=== PATIENT | male | born 1980 | race Caucasian/White ===

== ENCOUNTER 2018-05-06 08:15 | Day surgery (SDC) | payer BC ==
--- OUTSIDE RECORDS SUMMARY | 2018-05-06 08:19 | XMS REPORT ---
:1980 Author Organization eClinicalWorks Care Team Providers Name Role Phone Bouchra Forde Provider Role Unavailable Allergies No Known Allergies Problems No Known Problems Medications No Known Medications Results No Known Results Summary Purpose eClinicalWorks Submission
--- OUTSIDE RECORDS SUMMARY | 2018-05-06 08:19 | XMS REPORT ---
:1980 Author Organization eClinicalWorks Care Team Providers Name Role Phone Bouchra Forde Provider Role Unavailable Allergies, Adverse Reactions, Alerts Substance Reaction Event Type N.K.D.A. Info Not Available Non Drug Allergy Problems Problem Type Condition Code Onset Dates Condition Status Assessment Microhematuria R31.29 Active Medications Medication Code Code Instructions Start End Date Status Dosage System Date Multi Vitamin [facility] 52024683409 - Orally Once a Active 1 tablet day Results Name Result Date Reference Range Unit Abnormality Flag URINALYSIS AUTO W/O SCOPE (89920) ----OTTONIEL neg [id number] ----NIT neg [id number] ----PROTEIN neg [id number] ----pH 7.0 [id number] ----BLO 1+ [id number] ----GLUCOSE neg [id number] ----BILIRUBIN neg [id number] ----KETONES neg [id number] ----SPECIFIC GRAVITY 1.020 [id number] PVR ----PVR 0 [id number] Summary Purpose eClinicalWorks Submission
--- OUTSIDE RECORDS SUMMARY | 2018-05-06 08:19 | XMS REPORT ---
:1980 Author Organization eClinicalWorks Care Team Providers Name Role Phone Bouchra Forde Provider Role Unavailable Allergies No Known Allergies Problems No Known Problems Medications Medication Code System Code Instructions Start Date End Date Status Dosage Cipro [facility] [id number] 500 MG Orally Jan 22, Jan 23, Active 1 tablet once a day 2017 2017 Results No Known Results Summary Purpose eClinicalWorks Submission
--- OUTSIDE RECORDS SUMMARY | 2018-05-06 08:20 | XMS REPORT ---
:1980 Author Organization eClinicalWorks Care Team Providers Name Role Phone Ryder Silver Provider Role Unavailable Allergies, Adverse Reactions, Alerts Substance Reaction Event Type N.K.D.A. Info Not Available Non Drug Allergy Problems Problem Type Condition Code Onset Dates Condition Status Assessment Microhematuria R31.29 Active Medications Medication Code Code Instructions Start End Date Status Dosage System Date Multi Vitamin [facility] [id number] - Orally Once a Active 1 tablet day Results Name Result Date Reference Range Unit Abnormality Flag URINALYSIS AUTO W/O SCOPE (75228) ----NIT neg [id number] ----URO 0.2 20180126 ----PROTEIN neg 20180126 ----pH 8.0 20180126 ----BLO tr 20180126 ----GLUCOSE neg 20180126 ----OTTONIEL neg 20180126 ----BILIRUBIN neg 20180126 ----KETONES neg 20180126 ----SPECIFIC GRAVITY 1.010 20180126 Summary Purpose eClinicalWorks Submission
[2018-05-06] MEDS ORDERED: Ringers Lactate 1,000 ML IV ONE (09:17)
[2018-05-06] MEDS ORDERED: CEFAZOLIN 2GM (PREMIX IV) 2 GM/50 ML BAG ONE (09:18)
[2018-05-06] MEDS ORDERED: FENTANYL CITR 100 MCG/2 ML ONE (09:41)
[2018-05-06] MEDS ORDERED: PROPOFOL 200 MG/20 ML VIAL IV ONE (09:42)
[2018-05-06] MEDS ORDERED: LIDOCAINE 2% MPF 5 ML VIAL ONE (09:42)
[2018-05-06] MEDS ORDERED: MIDAZOLAM HCL 2 MG/2 ML INJ ONE (09:42)
[2018-05-06] MEDS ORDERED: ONDANSETRON 4 MG/2 ML VIAL ONE (09:42)
[2018-05-06] MEDS ORDERED: ROCURONIUM 50 MG/5 ML VIAL IV ONE (09:43)
[2018-05-06] MEDS ORDERED: BUPIVACA 0.25%/EPI 0.0005% MDV 50 ML VIAL ONE (09:59)
--- NOTE | 2018-05-06 11:03 | P.OP ---
Hall Coordinator: Fadi Luz Preoperative diagnosis: Umbilical Hernia Postoperative diagnosis: Umbilical Hernia Primary procedure: Open Repair of Umbilical Hernia with Mesh Anesthesia: GETA + Local Estimated blood loss: <5cc Specimen: None Findings: ~1.5cm umbilical hernia Complications: None Drain(s): Other Implants: 4.3 cm round Bard Ventralex Mesh Transferred to: Recovery Room Condition: Good
[2018-05-06] MEDS ORDERED: GLYCOPYRROLATE 0.2 MG/ML SYR ONE ×2 (11:13)
[2018-05-06] MEDS ORDERED: NEOSTIGMINE 1 MG/ML -5 ML SYRINGE ONE (11:13)
[2018-05-06] MEDS ORDERED: HYDROCODONE/APAP 5/325 MG TAB ONE (11:59)
--- NOTE | 2018-05-06 21:58 | OP ---
Date of Procedure: 05/06/2018 Surgeon: Isaac Luong MD, Supervisor Production Department: Ellis Macias. Preoperative Diagnosis: Umbilical hernia. Postoperative Diagnosis: Umbilical hernia. Procedure Performed: An open repair of umbilical hernia with mesh. Anesthesia: General endotracheal plus local. Estimated Blood Loss: Less than 5 cc. Specimen: None. Findings: A 1.5 cm umbilical hernia defect. Complication: None. Drains: None. Implants: A 4.3 cm Bard Ventralex mesh. Disposition: Transferred to recovery room in good condition. Procedure In Detail: After informed consent was obtained, the patient was brought to the operating r oom, prepped and draped in the usual sterile fashion. After adequate anesthesia was achieved, an inf raumbilical area was anesthetized was anesthetized appropriately and a curvilinear incision was made in the infraumbilical position for approximately 3.5-4 cm. I dissected down to expose the hernia sac , which was in the umbilical position. I opened the hernia sac and the preperitoneal fat was returne d to the normal abdominal space. I placed a finger and swept any preperitoneal fat out of the way an d inspected the area with no additional hemostatic maneuvers required. At this time, I brought the 4 .3 cm Bard Ventralex mesh. It was round and secured it in a parachute manner with an 0 PDS in a circ umferential manner on 4 points circumferentially around. I introduced the mesh in the preperitoneal space, pulled it up, and did a finger sweep once again to ensure that no enteric contents or peritone al fat were preventing complete apposition of the mesh to the anterior abdominal wall. While holding the fascial planes up and elevated, the mesh was secured to the anterior abdominal wall using the 4 interrupted 0 PDS sutures with good approximation of the mesh. After this was performed, the fascia over the top was closed in an A-jbtzal-yuof fashion with an additional 0 PDS suture with good approxi mation of tissues. The area was copiously irrigated multiple times and completely clear. No additio nal hemostatic maneuvers were required. The skin was then closed with a 4-0 Monocryl in a running fa shion. Dermabond was placed over the top. The patient tolerated the procedure well without evidence of complication and transferred to the PACU in good condition. All counts were correct at the end o f the case. TK/MODL Voice ID: [id number] Report ID: [id number]
== END 2018-05-06 12:27 | disposition home or self-care (01) ==
LOC: OR 08:15
PROVIDERS: ATTEND Surgery
PROC: 0WUF0JZ Supplement Abdominal Wall with Synthetic Substitute, Open Approach (ICD-10-PCS; principal; 2018-05-06 10:15)
DX: K42.9 Umbilical hernia without obstruction or gangrene (principal); Z87.891 Personal history of nicotine dependence
CPT/HCPCS: J0690; J2250; J2405; J2704; J2710; J3010

== ENCOUNTER 2022-01-02 14:19 | Emergency (ER) | payer BC ==
[2022-01-02 15:44] LABS: Absolute Lymphocytes (CBC) 1.7 K/uL (0.7-4.9); Hematocrit 40.2 % (39.6-49.0); Lymphocytes % 22.6 % (15.3-44.8); MCV 90.1 fL (80-100); MPV 7.9 fL (7.6-11.3); RBC Red Blood Cell Count 4.47 M/uL (4.33-5.43)
[2022-01-02 15:58] LABS: Albumin 3.6 g/dL (3.4-5.0); Bilirubin Total 0.2 mg/dL (0.2-1.0); Potassium 3.9 mmol/L (3.5-5.1); Protein, Total 6.8 g/dL (6.4-8.2)
[2022-01-02] MEDS ORDERED: NA CHLORIDE 0.9% 1,000 ML ONE (17:16)
[2022-01-02] MEDS ORDERED: PANTOPRAZOLE 40 MG INJ ONE (17:16)
--- NOTE | 2022-01-02 18:25 | RAD REPORT ---
EXAM DESCRIPTION: CTAbdomen Pelvis W Contrast - 01/02/2022 5:32 pm CLINICAL HISTORY: Abdominal pain. GI bleed COMPARISON: No comparisons TECHNIQUE: Biphasic CT imaging of the abdomen and pelvis was performed with 100 ml non-ionic IV cont rast. All CT scans are performed using dose optimization technique as appropriate and may include automated exposure control or mA/KV adjustment according to patient size. FINDINGS: The lung bases are clear. The liver, spleen, pancreas, adrenal glands and kidneys are within normal limits. Small benign cyst r ight kidney. No bowel obstruction, free air, free fluid or abscess. Small fat containing umbilical hernia. The saulo endix is normal. No evidence of significant lymphadenopathy. No suspicious bony findings. IMPRESSION: No acute intra-abdominal or pelvic finding.
--- NOTE | 2022-01-02 18:51 | EDPHYS ---
Physician Documentation [facility] Name: Sterling Rivers Age: 41 yrs Sex: Male : 1980 Arrival Date: 01/02/2022 Time: 14:27 Bed 9 Private MD: [facility] ED Physician Fantasma Trinidad HPI: 01/02 15:29 This 41 yrs old Male presents to ER via Ambulatory with complaints of Bloody Stools. pm1 15:29 The patient presents to the emergency department with rectal bleeding, dark red blood pm1 with bowel movement. Onset: The symptoms/episode began/occurred 1 week(s) ago. Abdominal pain: none is appreciated. Modifying factors: The symptoms are alleviated by nothing, the symptoms are aggravated by nothing. Associated signs and symptoms: Pertinent negatives: chest pain, constipation, diarrhea, syncope, vomiting. Severity of symptoms: in the emergency department the symptoms are worse Pain is currently a 0 / 10. The patient has not experienced similar symptoms in the past. The patient has not recently seen a physician. Historical: - Allergies: 15:00 No Known Allergies; bm7 - Home Meds: 15:00 None [Active]; bm7 - PMHx: 15:00 Anxiety; bm7 - PSHx: 15:00 umbilical hernia; bm7 - Immunization history:: Adult Immunizations up to date. - Social history:: Smoking status: Reported history of juuling and/or vaping. ROS: 15:29 Constitutional: Negative for fever, chills, and weight loss, Cardiovascular: Negative pm1 for chest pain, palpitations, and edema, Respiratory: Negative for shortness of breath, cough, wheezing, and pleuritic chest pain. 15:29 Back: Negative for injury and pain, MS/Extremity: Negative for injury and deformity, Skin: Negative for injury, rash, and discoloration, Neuro: Negative for headache, weakness, numbness, tingling, and seizure. 15:29 Abdomen/GI: Positive for black/tarry stool, Negative for abdominal pain, nausea, vomiting, and diarrhea. 15:29 All other systems are negative. Exam: 15:29 Constitutional: This is a well developed, well nourished patient who is awake, alert, pm1 and in no acute distress. Head/Face: Normocephalic, atraumatic. 15:29 Back: No spinal tenderness. No costovertebral tenderness. Full range of motion. Skin: Warm, dry with normal turgor. Normal color with no rashes, no lesions, and no evidence of cellulitis. MS/ Extremity: Pulses equal, no cyanosis. Neurovascular intact. Full, normal range of motion. 15:29 Cardiovascular: Exam negative for acute changes, Rate: normal, Rhythm: regular, Pulses: no pulse deficits are appreciated, Heart sounds: normal, normal S1and S2. 15:29 Respiratory: Exam negative for acute changes, respiratory distress, shortness of breath, Breath sounds: are clear throughout. 15:29 Abdomen/GI: Inspection: abdomen appears normal, Palpation: abdomen is soft and non-tender, in all quadrants. 15:29 Neuro: Exam negative for acute changes, Orientation: is normal, Mentation: is normal, Motor: is normal, moves all fours. 16:49 Abdomen/GI: Rectal exam: Stool: guaiac positive, Dark brown, Yanni aircraft engine technician. pm1 Vital Signs: 14:57 BP 146 / 92; Pulse 86; Resp 16; Temp 98.2(TE); Pulse Ox 99% on R/A; Weight 74.84 kg bm7 (R); Height 5 ft. 8 in. (172.72 cm); Pain 0/10; 15:21 Pulse 84; Resp 16; Temp 98.4; Pulse Ox 100% on R/A; Weight 82.55 kg; Height 5 ft. 5 in. bm7 (165.10 cm); 15:21 Body Mass Index 30.29 (82.55 kg, 165.10 cm) bm7 MDM: 15:07 Patient medically screened. pm1 16:49 Refusal of service: The patient/guardian displays adequate decision making capability pm1 and despite a detailed discussion of alternatives, benefits, risks, and consequences refuses: Admission to the hospital for further work-up and treatment, Patient's history is concerning for possible upper GI bleed. Patient's stool guaiac positive for blood. Recommended admission but the patient does not want to be admitted despite the risks explained. Therefore will treat the patient with Protonix IV and get CT scan for further evaluation. Patient is agreeable to CT scan. Will discuss admission with patient again after CT results obtained. 18:48 Data reviewed: vital signs. Data interpreted: Pulse oximetry: on room air is 100 %. pm1 Interpretation: normal. 18:48 Refusal of service: The patient/guardian displays adequate decision making capability pm1 and despite a detailed discussion of alternatives, benefits, risks, and consequences refuses: Admission to the hospital for further work-up and treatment, Patient's at bedside for patient's refusal. Explained to the patient that he can return at any time for admission and explained my concern for risk that he can bleed out with a GI bleed. Patient's game plan is to follow up with Dr. Wright on an outpatient basis for treatment and evaluation. 01/02 15:04 Order name: Lipase; Complete Time: 16:00 bm7 01/02 15:13 Order name: CBC with Diff; Complete Time: 16:15 bm7 01/02 15:13 Order name: CMP; Complete Time: 16:00 bm7 01/02 16:50 Order name: CT Abd/Pelvis - IV Contrast Only; Complete Time: 18:31 pm1 01/02 15:13 Order name: IV Saline Lock; Complete Time: 15:15 bm7 01/02 15:13 Order name: Labs collected and sent; Complete Time: 16:16 bm7 Administered Medications: 17:21 Drug: NS 0.9% 1000 ml Route: IV; Rate: 1000 ml; Site: right antecubital; iw 17:21 Drug: ProTONIX (pantoprazole) 40 mg Route: IVP; Site: right antecubital; iw Disposition: 21:16 Co-signature as Attending Physician, Fantasma CULLEN was immediately available on-site ms3 in the Emergency Department for consultation in the care of the patient. . Disposition Summary: 01/02/22 18:50 Discharge Ordered Location: Home pm1 Problem: new pm1 Symptoms: are unchanged pm1 Condition: Undetermined pm1 Diagnosis - GI Bleed/ Gastrointestinal hemorrhage, unspecified pm1 Followup: pm1 - With: Emergency Department - When: As needed - Reason: Worsening of condition Followup: pm1 - With: Quincy Harmon MD - When: Upon discharge from the Emergency Department - Reason: Recheck today's complaints, Continuance of care, Re-evaluation by your physician Discharge Instructions: - Discharge Summary Sheet pm1 - Gastrointestinal Bleeding pm1 Forms: - Medication Reconciliation Form pm1 - Thank You Letter pm1 - Antibiotic Education pm1 - Prescription Opioid Use pm1 Prescriptions: - Protonix 40 mg Oral tablet,delayed release (DR/EC) - take 1 tablet by ORAL route every 12 hours; 30 tablet; Refills: 0, Product pm1 Selection Permitted Signatures: Dispatcher [employer] EDMS Stephenie Enciso, RN RN iw Nhan Fuentes, APPLICATION SYSTEMS ARCHITECT APPLICATION SYSTEMS ARCHITECT pm1 Fantasma Trinidad DO DO ms3 Ami Broderick RN RN bm7 Corrections: (The following items were deleted from the chart) 15: 15:07 AMYLASE, SERUM+C.LAB.BRZ ordered. EDMS EDMS 15:44 15:07 HEPATIC FUNCTION+C.LAB.BRZ ordered. EDMS EDMS 15:44 15:14 AMYLASE, SERUM+C.LAB.BRZ reviewed. pm1 EDMS
--- NOTE | 2022-01-02 18:51 | ER ---
Nurse's Notes [facility] Name: Sterling Rivers Age: 41 yrs Sex: Male : 1980 Arrival Date: 01/02/2022 Time: 14:27 Bed 9 Private MD: Tyler Elena Diagnosis: GI Bleed/ Gastrointestinal hemorrhage, unspecified Presentation: 01/02 14:58 Chief complaint: Patient states: I have been having dark blood in my stool for the past bm7 week and my PCP told me to come to the ER. I have a history of hemorrhoids but im not sure if that's it. Coronavirus screen: At this time, the client does not indicate any symptoms associated with coronavirus-19. Ebola Screen: No symptoms or risks identified at this time. Initial Sepsis Screen: Does the patient meet any 2 criteria? No. Patient's initial sepsis screen is negative. Does the patient have a suspected source of infection? No. Patient's initial sepsis screen is negative. Risk Assessment: Do you want to hurt yourself or someone else? Patient reports no desire to harm self or others. Onset of symptoms was December 25, 2021. 14:58 Method Of Arrival: Ambulatory bm7 14:58 Acuity: MICHELET 3 bm7 Triage Assessment: 15:00 General: Appears in no apparent distress. comfortable, well groomed, well developed, bm7 Behavior is calm, cooperative, appropriate for age. Pain: Denies pain. EENT: No deficits noted. No signs and/or symptoms were reported regarding the EENT system. Neuro: No deficits noted. Cardiovascular: No deficits noted. Respiratory: No deficits noted. GI: Abdomen is round non-distended, Bowel sounds present X 4 quads. Reports rectal bleeding, bloody stool, Patient currently denies nausea, vomiting. : No deficits noted. No signs and/or symptoms were reported regarding the genitourinary system. Derm: No deficits noted. No signs and/or symptoms reported regarding the dermatologic system. Musculoskeletal: No deficits noted. No signs and/or symptoms reported regarding the musculoskeletal system. Historical: - Allergies: 15:00 No Known Allergies; bm7 - Home Meds: 15:00 None [Active]; bm7 - PMHx: 15:00 Anxiety; bm7 - PSHx: 15:00 umbilical hernia; bm7 - Immunization history:: Adult Immunizations up to date. - Social history:: Smoking status: Reported history of juuling and/or vaping. Vital Signs: 14:57 BP 146 / 92; Pulse 86; Resp 16; Temp 98.2(TE); Pulse Ox 99% on R/A; Weight 74.84 kg bm7 (R); Height 5 ft. 8 in. (172.72 cm); Pain 0/10; 15:21 Pulse 84; Resp 16; Temp 98.4; Pulse Ox 100% on R/A; Weight 82.55 kg; Height 5 ft. 5 in. bm7 (165.10 cm); 15:21 Body Mass Index 30.29 (82.55 kg, 165.10 cm) bm7 ED Course: 14:27 Patient arrived in ED. mr 14:27 Tyler Elena DO is Private Physician. mr 14:41 Nhan Fuentes [facility]. pm1 14:41 Fantasma Trinidad DO is Attending Physician. pm1 14:57 Arm band placed on right wrist. bm7 15:00 Triage completed. bm7 15:20 Initial lab(s) drawn, by nd, sent to lab. Inserted saline lock: 20 gauge in right bm7 antecubital area, using aseptic technique. Blood collected. 17:03 Stephenie Enciso, IVY is Primary Nurse. iw 17:34 CT Abd/Pelvis - IV Contrast Only In Process Unspecified. EDMS 18:50 Quincy Harmon MD is Referral Physician. pm1 Administered Medications: 17:21 Drug: NS 0.9% 1000 ml Route: IV; Rate: 1000 ml; Site: right antecubital; iw 17:21 Drug: ProTONIX (pantoprazole) 40 mg Route: IVP; Site: right antecubital; iw Outcome: 18:50 Discharge ordered by . pm1 19:05 Patient left the ED. iw Signatures: Dispatcher [employer] EDWV Mariann Law mr Stephenie Enciso, IVY RN iw Nhan Fuentes, [employer] pm1 Ami Broderick RN RN 7
[2022-01-02 20:44] VITALS: BP 146/92
[2022-01-02 20:56] VITALS: TEMP 98.4; O2SAT 100
== END 2022-01-02 19:05 | disposition home or self-care (01) ==
LOC: ER 14:19
DX: K92.2 Gastrointestinal hemorrhage, unspecified (principal)
CPT/HCPCS: 85025; 36415; 83690; 80053; 74177; 96374; 99284; Q9967; C9113; J7030

== ENCOUNTER 2022-04-09 06:55 | Day surgery (SDC) | payer BC ==
[2022-04-07 16:02] LABS: Absolute Lymphocytes (CBC) 2.1 K/uL (0.7-4.9); Hematocrit 43.4 % (39.6-49.0); Lymphocytes % 22.2 % (15.3-44.8); MCV 92.7 fL (80-100); MPV 7.6 fL (7.6-11.3); RBC Red Blood Cell Count 4.68 M/uL (4.33-5.43)
--- NOTE | 2022-04-07 16:58 | RAD REPORT ---
EXAM DESCRIPTION: RAD - Chest Pa And Lat (2 Views) - 04/07/2022 4:06 pm CLINICAL HISTORY: Pre op pending hernia repair Chest pain. COMPARISON: No comparisons FINDINGS: The lungs are clear. The heart is normal in size. No displaced fractures. IMPRESSION: No acute or concerning finding suspected.
--- NOTE | 2022-04-08 08:22 | EKG ---
Test Date: 2022-04-07 Test Time: 15:40:26 It Auditor: KEILA MEASUREMENT RESULTS: Intervals: Rate: 75 NH: 154 QRSD: 96 QT: 378 QTc: 422 [place]: P: 45 NH: 154 QRS: 42 T: 44 INTERPRETIVE STATEMENTS: Normal sinus rhythm Normal ECG No previous ECG available for comparison Electronically Signed On 04-08-22 08:19:49 FLYER MAKER by Travon Malave
[2022-04-09] MEDS ORDERED: Ringers Lactate 1,000 ML IV ONE (07:13)
[2022-04-09] MEDS ORDERED: CEFAZOLIN SODIUM 1 GM/VIAL ONE (07:13)
[2022-04-09] MEDS ORDERED: propofoL 200 MG/20 ML VIAL IV ONE (07:20)
[2022-04-09] MEDS ORDERED: FENTANYL CITR 100 MCG/2 ML ONE ×2 (07:20→08:37)
[2022-04-09] MEDS ORDERED: MIDAZOLAM HCL 2 MG/2 ML INJ ONE (07:20)
[2022-04-09] MEDS ORDERED: ROCURONIUM 50 MG/5 ML VIAL IV ONE (07:21)
[2022-04-09] MEDS ORDERED: ONDANSETRON 4 MG/2 ML VIAL ONE ×2 (07:24→09:42)
[2022-04-09] MEDS ORDERED: LIDOCAINE 2% MPF 5 ML VIAL ONE (07:24)
[2022-04-09] MEDS ORDERED: KETOROLAC 30 MG/ML INJ ONE (09:01)
[2022-04-09] MEDS ORDERED: Mastisol Adhesive Liq ONE (09:10)
[2022-04-09] MEDS ORDERED: GLYCOPYRROLATE 0.2 MG/ML SYR ONE (09:21)
--- NOTE | 2022-04-09 09:41 | P.BOP ---
Preoperative diagnosis: recurrent umbilical hernia Postoperative diagnosis: same Primary procedure: Laparoscopic repair of incarcerated umbilical hernia with mesh Secondary procedure: Removal of provious mesh Estimated blood loss: <10cc Specimen: sac and mesh Findings: see dicta Anesthesia: General Complications: None Implants: large ventralex mesh Transferred to: Recovery Room Condition: Good
[2022-04-09] MEDS: HYDROMORPHONE HCL 1 MG/ML INJ ONE ×2 (09:43→09:53)
[2022-04-09 10:04] VITALS: O2SAT 98
[2022-04-09] MEDS ORDERED: HYDROCODONE/APAP 7.5/325 MG TAB ONE (10:56)
[2022-04-09 14:16] VITALS: BP 139/98; TEMP 97
--- NOTE | 2022-04-09 20:20 | DS ---
Diagnosis: Recurrent umbilical hernia Procedures: Laparoscopic repair of recurrent umbilical hernia with mesh and laparoscopic lysis of ad hesions and removal of previous mesh. Disposition: Home. Activity: As tolerated. No heavy lifting. Follow Up: In my office in 1 week. Call for appointment at [phone]. Discharge Instructions: Keep area dry for 48 hours, then may shower. Keep Steri-Strips intact. CHELSEA/FRANKLIN Voice ID: [id number] Report ID: [id number]
--- NOTE | 2022-04-09 20:27 | OP ---
Date of Procedure: 04/09/2022 Surgeon: Jam Will MD Preoperative Diagnosis: Recurrent umbilical hernia. Postoperative Diagnosis: Recurrent umbilical hernia. Procedures: Laparoscopic repair of incarcerated umbilical hernia with mesh and removal of previous m esh. Specimen: Hernia sac and mesh. Findings: Patient had what looked like a mesh that went into the fascia and is underneath the skin i n the periumbilical area. Patient said he had some hard content and that was the mesh in that region. This mesh had to be excised in order for us to continue with surgery. Fascial edges we re cleaned and then we repaired that as we discussed below. Complications: None. Implant: Ventralex large mesh. Estimated Blood Loss: Less than 10 cc. Indications: This is a case of a male who once again had an umbilical hernia repair in the past with mesh and found out that the hernia came back and the mesh apparently went through and was sitting un derneath the skin through the defect. He understands the benefits, alternatives, and risks of the in carcerated ventral hernia repair since there is incarcerated tissue in that region. He also understa nds the difficulty there might be from removing the mesh and how the defect may get bigger and how he might need more than one surgical intervention and how he might need mesh again. He still wants to go ahead and fix this as this is giving him pain and discomfort. So laparoscopic and possible open r epair of recurrent umbilical hernia with mesh were discussed with the patient and removal of the prev ious mesh. Benefits, alternatives, and risks include, but are not limited to infection, bleeding, da mage to adjacent structures, anesthesia complication, recurrence, VA, and even . He also unders tands this may not relieve any symptoms. He might need more than one surgical intervention. He unde rstood, signed a consent. The pros and cons of mesh placement were discussed with the patient to his satisfaction. All the questions were answered to his satisfaction. He selected [facility] as the surgery center of choice after allowed to select hospitals of the area. Procedure In Detail: The patient was brought to the operating room and placed in supine position. A nesthesia was done without complication. A time-out was called. Abdomen was prepped and draped in t he usual sterile fashion. A curvilinear incision was made in the infraumbilical region and then afte r that, we proceeded to carefully identify the on that incarceration tissue. We noticed t hat there is incarcerated omentum coming through, but also this mesh is coming through. So carefully in a methodical fashion, we proceeded to release this mesh from the fascia and the rest of the subcu taneous tissue and the periumbilical skin. Once the mesh was removed, we proceeded to identify the f ascia edges. There are some adhesions still underneath so I put a Opal trocar through that defect, obtained pneumoperitoneum, placed 2 more trocars, 5 mm each one of them on the left and right side a nd through that 5 mm trocar we were able to assess a little bit better the area of concern. With the help of LigaSure, we proceeded then to do lysis of adhesions until the anterior abdominal wall was f ree from adhesions in that area. This allowed me to see the defect. We deflated pneumoperitoneum te mporarily until we cleaned the fascial edges on top and did a kltxus-ea-udpnw #1 Vicryl multiple time s. Then, after that, due to the fascial edges need reinforcement, so we introduced a large Ventralex mesh with the strap coming through the incision. Obtained pneumoperitoneum and fixed directly that mesh in the anterior abdominal wall circumferentially, making sure no bowel can get in between. The straps of that mesh were amputated and then after that we proceeded to close the fascial edges and ap proximate with #1 Vicryl in a jaxqqh-fr-skfof fashion multiple times. We put the cameras once again and we noticed the area of the lysis of adhesions that show no bleeding and no enterotomies. The mes h looks, in the anterior abdominal wall, nice and flat and secured in place with the SorbaFix fixatio n device, waterproof and airproof. At that moment then I deflated pneumoperitoneum, closed the fasci a, removed the 5 mm trocars, and closed the fascia once again with a #1 Vicryl that we had previously placed. Irrigated subcutaneous tissue and closed the skin in a subcuticular fashion. Sponge count and instrument counts were correct. Patient tolerated the procedure well. Patient was sent to recovery in stable condition. CHELSEA/FRANKLIN Voice ID: [id number] Report ID: [id number]
== END 2022-04-09 11:40 | disposition home or self-care (01) ==
LOC: OR 06:55
PROVIDERS: ATTEND Surgery
PROC: 0WUF4JZ Supplement Abdominal Wall with Synthetic Substitute, Percutaneous Endoscopic Approach (ICD-10-PCS; principal; 2022-04-09 08:15)
DX: K42.9 Umbilical hernia without obstruction or gangrene (principal)
CPT/HCPCS: 93005; 85025; 80048; 36415; 88302; 71046; 49653; J2704; J2001; J2250; J3010 ×2; J1170; J7120; J2405 ×2; J0690